=== PATIENT | female | born 1930 | race Caucasian/White ===

== ENCOUNTER 2016-06-23 04:08 | Inpatient (IN) | payer MEDICARE, OTHER ==
[~2016-06-23] VITALS: Ht 152.4 cm; Wt 65.5 kg
[2016-06-23 06:25] LABS: HEMOGLOBIN 12.8 gm/dl (12.3-15.3); RED BLOOD COUNT 4.26 M/UL (4.00-5.10); WHITE BLOOD COUNT 7.1 K/UL (4.5-11.0)
[2016-06-23 06:51] LABS: BUN/CREATININE RATIO 64 (0-10)
[2016-06-23] MEDS ORDERED: ASPIR 8181 MG PO (13:05)
[2016-06-23] MEDS ORDERED: ZOLOFT50 MG PO (13:06)
[2016-06-23] MEDS ORDERED: NITROGLYCERIN0.4 MG SL (13:06)
[2016-06-23] MEDS ORDERED: TOPROL XL 50 MG50 MG PO (13:07)
[2016-06-23] MEDS ORDERED: ALDACTONE25 MG PO (13:08)
[2016-06-23] MEDS ORDERED: K-TAB ER20 MEQ PO (13:08)
[2016-06-23] MEDS ORDERED: LASIX20 MG PO (13:09)
[2016-06-23] MEDS ORDERED: CELEXA20 MG PO (13:09)
[2016-06-23] MEDS ORDERED: PROTONIX40 MG PO (13:10)
[2016-06-23] MEDS ORDERED: LISINOPRIL2.5 MG PO (13:10)
[2016-06-23] MEDS ORDERED: PRILOSEC OTC20 MG PO (13:10)
[2016-06-23] MEDS ORDERED: [UNRECOGNIZED DRUG - REMARK] INH (13:13)
[2016-06-24 03:56] LABS: HEMOGLOBIN 12.1 gm/dl (12.3-15.3); RED BLOOD COUNT 4.07 M/UL (4.00-5.10); WHITE BLOOD COUNT 3.6 K/UL (4.5-11.0)
[2016-06-24 04:09] LABS: BUN/CREATININE RATIO 73 (0-10)
[2016-06-25 03:55] LABS: HEMOGLOBIN 11.7 gm/dl (12.3-15.3)
[2016-06-25 04:01] LABS: WHITE BLOOD COUNT 6.7 K/UL (4.5-11.0)
[2016-06-25 04:09] LABS: BUN/CREATININE RATIO 72 (0-10)
[2016-06-26 04:12] LABS: HEMOGLOBIN 12.4 gm/dl (12.3-15.3); RED BLOOD COUNT 4.14 M/UL (4.00-5.10); WHITE BLOOD COUNT 5.9 K/UL (4.5-11.0)
[2016-06-26 04:27] LABS: BUN/CREATININE RATIO 60 (0-10)
[2016-06-27 05:49] LABS: BUN/CREATININE RATIO 66 (0-10)
[2016-06-28 04:54] LABS: BUN/CREATININE RATIO 66 (0-10)
[2016-06-28] MEDS ORDERED: PLAVIX 75 MG TA75 MG PO (12:25)
[2016-06-28] MEDS ORDERED: FERROUS SULFAT325 MG PO (12:27)
[2016-06-28] MEDS ORDERED: ISOSORBIDE MONO30 MG PO (12:31)
[2016-06-28] MEDS ORDERED: DULERA 100 MCG8.8 GM INH (12:33)
[2016-06-28] MEDS ORDERED: SPIRIVA18 MCG INH (12:34)
[2016-06-28] MEDS ORDERED: TYLENOL 325MG325 MG PO (12:35)
[2016-06-28] MEDS ORDERED: IPRAT-ALBUT 0.5-3 ML INH (12:38)
[2016-06-28] MEDS ORDERED: THERAGRAN M TAB1 EA PO (12:39)
== END 2016-06-28 17:00 | disposition home or self-care (01) | DRG 280 ==
LOC: ER1 04:08 → PROG CARE 10:40 → ZEROF 10:40 → PROG CARE 12:20 → MED SURG 4 06-25 12:19
PROVIDERS: Emergency Medicine; Internal Medicine Infectious Disease; ADMIT Internal Medicine
DX: I21.4 Non-ST elevation (NSTEMI) myocardial infarction (principal); I50.23 Acute on chronic systolic (congestive) heart failure; J44.0 Chronic obstructive pulmonary disease with (acute) lower respiratory infection; J44.1 Chronic obstructive pulmonary disease with (acute) exacerbation; J20.9 Acute bronchitis, unspecified; I11.0 Hypertensive heart disease with heart failure; I25.5 Ischemic cardiomyopathy; D69.6 Thrombocytopenia, unspecified; E53.8 Deficiency of other specified B group vitamins; E61.1 Iron deficiency; I49.5 Sick sinus syndrome; Z95.0 Presence of cardiac pacemaker; I48.0 Paroxysmal atrial fibrillation; I25.10 Atherosclerotic heart disease of native coronary artery without angina pectoris; Z66 Do not resuscitate; Z95.1 Presence of aortocoronary bypass graft; Z95.5 Presence of coronary angioplasty implant and graft; I44.7 Left bundle-branch block, unspecified; I27.2 Other secondary pulmonary hypertension; E78.5 Hyperlipidemia, unspecified; Z98.890 Other specified postprocedural states; Z79.82 Long term (current) use of aspirin; Z79.899 Other long term (current) drug therapy; I36.1 Nonrheumatic tricuspid (valve) insufficiency; K80.20 Calculus of gallbladder without cholecystitis without obstruction; R06.02 Shortness of breath; M79.89 Other specified soft tissue disorders; M79.662 Pain in left lower leg
CPT/HCPCS: ECHO; 36415; 36600; 51702; 71010; 71020; 80048; 80053; 81001; 82550; 82553; 82607; 82728; 82746; 82803; 83540; 83550; 83605; 83735; 83880; 84484; 85025; 85027; 87040; 93005; 93306; 93971; 94640; 94660; 94664; 96361; 96374; 96375; 99285; J0696; J1940; J2270; J2405; J2920; J2930; J3420; J7050; Q0162

== ENCOUNTER 2016-09-24 18:53 | Emergency (ER) | payer MEDICARE, OTHER ==
[~2016-09-24 18:53] MED LIST: ALDACTONE25 MG PO; ASPIR 8181 MG PO; CELEXA20 MG PO; DULERA 100 MCG8.8 GM INH; FERROUS SULFAT325 MG PO; IPRAT-ALBUT 0.5-3 ML INH; ISOSORBIDE MONO30 MG PO; K-TAB ER20 MEQ PO; LASIX20 MG PO; LISINOPRIL2.5 MG PO; NITROGLYCERIN0.4 MG SL; PLAVIX 75 MG TA75 MG PO; PRILOSEC OTC20 MG PO; PROTONIX40 MG PO; SPIRIVA18 MCG INH; THERAGRAN M TAB1 EA PO; TOPROL XL 50 MG50 MG PO; TYLENOL 325MG325 MG PO; ZOLOFT50 MG PO; [UNRECOGNIZED DRUG - REMARK] INH
[2016-09-24 20:12] LABS: HEMOGLOBIN 13.4 gm/dl (12.3-15.3); RED BLOOD COUNT 4.38 M/UL (4.00-5.10); WHITE BLOOD COUNT 4.1 K/UL (4.5-11.0)
[2016-09-24 20:32] LABS: BUN/CREATININE RATIO 47 (0-10)
== END 2016-09-24 22:25 | disposition home or self-care (01) ==
LOC: ER1 18:53
PROVIDERS: Family Medicine
DX: R07.89 Other chest pain (principal); I44.7 Left bundle-branch block, unspecified; J44.9 Chronic obstructive pulmonary disease, unspecified; Z95.0 Presence of cardiac pacemaker; Z95.5 Presence of coronary angioplasty implant and graft; Z79.899 Other long term (current) drug therapy; Z88.2 Allergy status to sulfonamides
CPT/HCPCS: 36415; 71010; 80053; 82550; 82553; 83874; 84484; 85025; 93005; 99285

== ENCOUNTER 2021-02-25 20:28 | Emergency (ER) | payer MEDICARE, OTHER ==
[~2021-02-25 20:28] MED LIST changes: +ASPIRIN CHEWABL81 MG PO; +CEFUROXIME500 MG PO; +CITALOPRAM HBR20 MG PO; +DOCUSATE SODIU100 MG PO; +FUROSEMIDE40 MG PO; +KEFLEX CAP 500500 MG PO; +LISINOPRIL5 MG PO; +MACRODANTIN100 MG PO; +METOPROLOL TART25 MG PO; +MIDODRINE HCL5 MG PO; +MULTIVITAMINS1 EAC1 PO; +NITROFURANTOIN100 MG PO; +NITROSTAT0.4 MG SL; +OMNICEF 300 MG300 MG PO; +PLAVIX75 MG PO; +RANITIDINE HCL150 M1 PO; +SPIRIVA HANDIH18 MCG INH; +SPIRONOLACTONE25 MG PO; +VOLTAREN100 GM TOP; +ZOFRAN4 MG PO; +[UNRECOGNIZED DRUG - OTHER] PO
[2021-02-25 21:16] LABS: HEMOGLOBIN 14.3 gm/dl (12.3-15.3); RED BLOOD COUNT 4.55 M/UL (4.00-5.10); WHITE BLOOD COUNT 5.2 K/UL (4.5-11.0)
[2021-02-25 21:39] LABS: BUN/CREATININE RATIO 40 (0-10)
== END 2021-02-25 22:50 | disposition home or self-care (01) ==
LOC: ER1 20:28
PROVIDERS: Family Medicine
DX: R07.89 Other chest pain (principal); I11.0 Hypertensive heart disease with heart failure; I50.9 Heart failure, unspecified; J44.9 Chronic obstructive pulmonary disease, unspecified
CPT/HCPCS: 71045; 80053; 82550; 82553; 83874; 83880; 84484; 85025; 93005; 99285; J7030

== ENCOUNTER 2021-06-27 22:26 | Emergency (ER) | payer MEDICARE, OTHER ==
[2021-06-28 01:38] LABS: HEMOGLOBIN 13.6 gm/dl (12.3-15.3); RED BLOOD COUNT 4.36 M/UL (4.00-5.10); WHITE BLOOD COUNT 4.1 K/UL (4.5-11.0)
[2021-06-28 02:06] LABS: BUN/CREATININE RATIO 55 (0-10)
[2021-06-28] MEDS ORDERED: OMNICEF 300 MG300 MG PO (04:28)
== END 2021-06-28 04:40 | disposition home or self-care (01) ==
LOC: ER1 22:26
PROVIDERS: Emergency Medicine
DX: N39.0 Urinary tract infection, site not specified (principal); R07.9 Chest pain, unspecified; I11.9 Hypertensive heart disease without heart failure; Z20.822 Contact with and (suspected) exposure to COVID-19
CPT/HCPCS: 71045; 80053; 81001; 82550; 82553; 83690; 83735; 83880; 84439; 84443; 84484; 85025; 93005; 96374; 96375; 99285; J0696; J2405; U0002

== ENCOUNTER 2021-08-01 04:19 | Inpatient (IN) | payer MEDICARE, OTHER ==
[~2021-08-01] VITALS: Ht 152.4 cm; Wt 46.0 kg
[~2021-08-01 04:19] MED LIST changes: -METOPROLOL TART25 MG PO
[2021-08-01 04:39] LABS: HEMOGLOBIN 13.2 gm/dl (12.3-15.3); RED BLOOD COUNT 4.19 M/UL (4.00-5.10); WHITE BLOOD COUNT 4.6 K/UL (4.5-11.0)
[2021-08-01] MEDS ORDERED: METOPROLOL TART25 MG PO (04:39)
[2021-08-01] MEDS ORDERED: NITROGLYCERIN0.4 MG SL (04:47)
[2021-08-01 04:59] LABS: BUN/CREATININE RATIO 61 (0-10)
[2021-08-01] MEDS ORDERED: SERTRALINE HCL25 MG PO (11:11)
[2021-08-01] MEDS ORDERED: ANORO ELLIPTA1 EACH INH (11:12)
[2021-08-01] MEDS ORDERED: LISINOPRIL2.5 MG PO (14:02)
[2021-08-02 03:09] LABS: HEMOGLOBIN 13.8 gm/dl (12.3-15.3); RED BLOOD COUNT 4.46 M/UL (4.00-5.10); WHITE BLOOD COUNT 5.4 K/UL (4.5-11.0)
[2021-08-02 04:18] LABS: BUN/CREATININE RATIO 45 (0-10)
[2021-08-03 02:51] LABS: RED BLOOD COUNT 4.16 M/UL (4.00-5.10)
[2021-08-03 03:27] LABS: BUN/CREATININE RATIO 57 (0-10)
[2021-08-03 03:32] LABS: WHITE BLOOD COUNT 3.3 K/UL (4.5-11.0)
[2021-08-04 02:52] LABS: BUN/CREATININE RATIO 54 (0-10)
[2021-08-04] MEDS ORDERED: ATORVASTATIN CA20 MG PO (12:11)
[2021-08-04] MEDS ORDERED: MEDROL4 MG PO (12:11)
[2021-08-04] MEDS ORDERED: ASPIRIN EC81 MG PO (12:11)
[2021-08-04] MEDS ORDERED: LASIX40 MG PO (12:13)
== END 2021-08-04 14:07 | disposition home or self-care (01) | DRG 291 ==
LOC: ER1 04:19 → CDU 05:44 → M/S 09:14
PROVIDERS: Family Medicine; Internal Medicine; Physician Assistant; ADMIT Internal Medicine
PROC: B24BZZZ Ultrasonography of Heart with Aorta (ICD-10-PCS; principal; 2021-08-01)
DX: I11.0 Hypertensive heart disease with heart failure (principal); I50.23 Acute on chronic systolic (congestive) heart failure; J96.21 Acute and chronic respiratory failure with hypoxia; Z20.822 Contact with and (suspected) exposure to COVID-19; I48.20 Chronic atrial fibrillation, unspecified; J44.1 Chronic obstructive pulmonary disease with (acute) exacerbation; I42.9 Cardiomyopathy, unspecified; I25.10 Atherosclerotic heart disease of native coronary artery without angina pectoris; D69.6 Thrombocytopenia, unspecified; I44.7 Left bundle-branch block, unspecified; I27.20 Pulmonary hypertension, unspecified; Z95.5 Presence of coronary angioplasty implant and graft; Z79.01 Long term (current) use of anticoagulants; Z87.81 Personal history of (healed) traumatic fracture; Z95.0 Presence of cardiac pacemaker; Z98.890 Other specified postprocedural states; Z87.442 Personal history of urinary calculi; Z79.82 Long term (current) use of aspirin
CPT/HCPCS: ECHO; 36415; 71045; 80048; 80053; 82550; 82553; 83735; 83880; 84439; 84443; 84484; 85025; 93005; 93306; 94640; 94664; 94760; 96372; 96374; 96375; 96376; 99285; G0378; J1650; J1940; J2920; U0002

== ENCOUNTER 2021-08-10 00:20 | Inpatient (IN) | payer MEDICARE, OTHER ==
[~2021-08-10] VITALS: Ht 154.9 cm; Wt 45.9 kg
[~2021-08-10 00:20] MED LIST changes: +ASPIRIN EC81 MG PO; +ATORVASTATIN CA20 MG PO; +LASIX40 MG PO; +MEDROL DOSEPAK 24 MG PO; +MEDROL4 MG PO; +METOPROLOL TART25 MG PO; +SERTRALINE HCL25 MG PO
[2021-08-10 00:59] LABS: HEMOGLOBIN 14.6 gm/dl (12.3-15.3); RED BLOOD COUNT 4.62 M/UL (4.00-5.10); WHITE BLOOD COUNT 16.5 K/UL (4.5-11.0)
[2021-08-10 01:22] LABS: BUN/CREATININE RATIO 50 (0-10)
[2021-08-10] MEDS ORDERED: ANORO ELLIPTA1 EACH INH (11:12)
[2021-08-10] MEDS ORDERED: ATORVASTATIN CA40 MG PO (19:18)
[2021-08-10] MEDS ORDERED: MULTI-VITAMIN1 EACH PO (19:29)
[2021-08-10] MEDS ORDERED: ALBUTEROL2.5 MG/3 M INH (19:31)
[2021-08-11 03:48] LABS: RED BLOOD COUNT 4.2 M/UL (4.00-5.10); WHITE BLOOD COUNT 12.9 K/UL (4.5-11.0)
[2021-08-11 04:09] LABS: BUN/CREATININE RATIO 53 (0-10)
[2021-08-11 20:09] LABS: BORDETELLA PARAPERTUSSIS Not Detected (Not Detectd); BORDETELLA PERTUSSIS Not Detected (Not Detectd); CHLAMYDIA PNEUMONIAE Not Detected (Not Detectd); CORONAVIRUS HKU1 Not Detected (Not Detectd); CORONAVIRUS NL63 Not Detected (Not Detectd); CORONAVIRUS OC43 Not Detected (Not Detectd); CORONOAVIRUS 229E Not Detected (Not Detectd); HUMAN METAPNEUMOVIRUS Not Detected (Not Detectd); HUMAN RHINOVIRUS/ENTEROVIRUS Not Detected (Not Detectd); INFLUENZA A Not Detected (Not Detectd); INFLUENZA B Not Detected (Not Detectd); MYCOPLASMA PNEUMONIAE Not Detected (Not Detectd); PARAINFLUENZA VIRUS 1 Not Detected (Not Detectd); PARAINFLUENZA VIRUS 2 Not Detected (Not Detectd); PARAINFLUENZA VIRUS 3 Not Detected (Not Detectd); PARAINFLUENZA VIRUS 4 Not Detected (Not Detectd); RESPIRATORY SYNCYTIAL VIRUS Not Detected (Not Detectd)
[2021-08-11 21:06] LABS: SARS-CoV-2 NOT DETECTED (Not Detectd)
[2021-08-12 06:14] LABS: RED BLOOD COUNT 3.84 M/UL (4.00-5.10); WHITE BLOOD COUNT 10.7 K/UL (4.5-11.0)
[2021-08-12 06:34] LABS: BUN/CREATININE RATIO 56 (0-10)
[2021-08-13 02:57] LABS: HEMOGLOBIN 12.7 gm/dl (12.3-15.3); RED BLOOD COUNT 4.11 M/UL (4.00-5.10); WHITE BLOOD COUNT 8.3 K/UL (4.5-11.0)
[2021-08-13 03:47] LABS: BUN/CREATININE RATIO 53 (0-10)
[2021-08-13] MEDS ORDERED: MEDROL4 MG PO (10:08)
[2021-08-13] MEDS ORDERED: CEFUROXIME250 MG PO (10:08)
[2021-08-14 03:01] LABS: HEMOGLOBIN 12.4 gm/dl (12.3-15.3); RED BLOOD COUNT 3.92 M/UL (4.00-5.10); WHITE BLOOD COUNT 10.2 K/UL (4.5-11.0)
[2021-08-14 03:21] LABS: BUN/CREATININE RATIO 46 (0-10)
[2021-08-14] MEDS ORDERED: IPRAT-ALBUT 0.5-3 ML NEB (17:48)
[2021-08-14] MEDS ORDERED: LASIX40 MG PO (17:48)
[2021-08-14] MEDS ORDERED: BUDESONIDE0.5 MG/2 M NEB (17:49)
[2021-08-14] MEDS ORDERED: MUCINEX600 MG PO (17:57)
--- NOTE | 2021-08-14 18:08 | NUR ---
PROVIDER ASKED PATIENT'S FINAL BP BE DOCUMENTED BEFORE SHE LEFT AT DISCHARGE. HER BP WAS 116/57 WITH A HR OF 85.
== END 2021-08-14 18:38 | disposition home health service (06) | DRG 189 ==
LOC: ER1 00:20 → MED SURG 4 04:04 → CDU 04:04 → MED SURG 4 04:59
PROVIDERS: Family Medicine; Internal Medicine; Physician Assistant; ADMIT Internal Medicine
DX: J96.21 Acute and chronic respiratory failure with hypoxia (principal); J44.1 Chronic obstructive pulmonary disease with (acute) exacerbation; N30.00 Acute cystitis without hematuria; I50.22 Chronic systolic (congestive) heart failure; I13.0 Hypertensive heart and chronic kidney disease with heart failure and stage 1 through stage 4 chronic kidney disease, or unspecified chronic kidney disease; N18.9 Chronic kidney disease, unspecified; Z20.822 Contact with and (suspected) exposure to COVID-19; I95.9 Hypotension, unspecified; D69.6 Thrombocytopenia, unspecified; I44.7 Left bundle-branch block, unspecified; D72.828 Other elevated white blood cell count; Z96.698 Presence of other orthopedic joint implants; I49.5 Sick sinus syndrome; I27.20 Pulmonary hypertension, unspecified; I48.0 Paroxysmal atrial fibrillation; I25.10 Atherosclerotic heart disease of native coronary artery without angina pectoris; J20.9 Acute bronchitis, unspecified; T38.0X5A Adverse effect of glucocorticoids and synthetic analogues, initial encounter; I25.5 Ischemic cardiomyopathy; Z77.22 Contact with and (suspected) exposure to environmental tobacco smoke (acute) (chronic); Z95.0 Presence of cardiac pacemaker; Z95.5 Presence of coronary angioplasty implant and graft; Z79.01 Long term (current) use of anticoagulants; Z79.82 Long term (current) use of aspirin; Z99.81 Dependence on supplemental oxygen; Z87.442 Personal history of urinary calculi; Z87.81 Personal history of (healed) traumatic fracture; Z82.49 Family history of ischemic heart disease and other diseases of the circulatory system
CPT/HCPCS: 36415; 36600; 71045; 80048; 80053; 81001; 82550; 82553; 82803; 83605; 83880; 84484; 85025; 85610; 87040; 87633; 93005; 94640; 94664; 94760; 96372; 96374; 96375; 96376; 97161; 97166; 99285; G0378; J0696; J1650; J2405; J2920

== ENCOUNTER → 2021-09-04 | Outpatient (CLI) | payer MEDICARE, OTHER ==
[~2021-09-04] MED LIST changes: +ALBUTEROL2.5 MG/3 M INH; +ANORO ELLIPTA1 EACH INH; +ATORVASTATIN CA40 MG PO; +BUDESONIDE0.5 MG/2 M NEB; +CEFUROXIME250 MG PO; +IPRAT-ALBUT 0.5-3 ML NEB; +MUCINEX600 MG PO; +MULTI-VITAMIN1 EACH PO
== END ==
LOC: HEART 5 11:47
DX: J96.91 Respiratory failure, unspecified with hypoxia (principal)
CPT/HCPCS: 94060; 94729

== ENCOUNTER 2021-11-09 18:21 | Observation (INO) | payer MEDICARE, OTHER ==
[~2021-11-09] VITALS: Ht 152.4 cm; Wt 57.2 kg
[2021-11-09 19:10] LABS: HEMOGLOBIN 12.3 gm/dl (12.3-15.3); RED BLOOD COUNT 3.95 M/UL (4.00-5.10); WHITE BLOOD COUNT 2.9 K/UL (4.5-11.0)
[2021-11-09 19:33] LABS: BUN/CREATININE RATIO 48 (0-10)
[2021-11-10 04:46] LABS: HEMOGLOBIN 11.5 gm/dl (12.3-15.3); RED BLOOD COUNT 3.68 M/UL (4.00-5.10); WHITE BLOOD COUNT 2.6 K/UL (4.5-11.0)
[2021-11-10 05:16] LABS: BUN/CREATININE RATIO 57 (0-10)
[2021-11-10] MEDS ORDERED: ASPIRIN EC81 MG PO (09:47)
[2021-11-10] MEDS ORDERED: BUDESONIDE0.5 MG/2 M INH (09:48)
[2021-11-10] MEDS ORDERED: IPRAT-ALBUT 0.5-3 ML INH (09:48)
[2021-11-10] MEDS ORDERED: ADVAIR HFA 115-28 GM INH (09:49)
[2021-11-10] MEDS ORDERED: DRISDOL1250 MCG PO (09:50)
[2021-11-10] MEDS ORDERED: GABAPENTIN100 MG PO (09:50)
[2021-11-10] MEDS ORDERED: SPIRONOLACTONE25 MG PO (09:51)
[2021-11-11] MEDS ORDERED: MIDODRINE HCL2.5 MG PO (11:55)
== END 2021-11-11 13:50 | disposition home or self-care (01) ==
LOC: ER1 18:21 → CDU 21:06 → MED SURG 4 21:06
PROVIDERS: ADMIT Internal Medicine
DX: R07.89 Other chest pain (principal); G89.29 Other chronic pain; I95.9 Hypotension, unspecified; I50.22 Chronic systolic (congestive) heart failure; I25.5 Ischemic cardiomyopathy; I25.10 Atherosclerotic heart disease of native coronary artery without angina pectoris; I49.5 Sick sinus syndrome; I48.0 Paroxysmal atrial fibrillation; I44.7 Left bundle-branch block, unspecified; J44.9 Chronic obstructive pulmonary disease, unspecified; J96.11 Chronic respiratory failure with hypoxia; Z20.822 Contact with and (suspected) exposure to COVID-19; Z66 Do not resuscitate; Z95.0 Presence of cardiac pacemaker; Z95.5 Presence of coronary angioplasty implant and graft; Z99.81 Dependence on supplemental oxygen; Z79.51 Long term (current) use of inhaled steroids; Z79.82 Long term (current) use of aspirin; Z79.02 Long term (current) use of antithrombotics/antiplatelets; Z79.899 Other long term (current) drug therapy
CPT/HCPCS: 36415; 71045; 80053; 82550; 82553; 83735; 84100; 84484; 85025; 93005; 94640; 94664; 94760; 96372; 99285; G0378; J1650; U0002

== ENCOUNTER 2021-11-18 20:09 | Emergency (ER) | payer MEDICARE, OTHER ==
[~2021-11-18 20:09] MED LIST changes: +ADVAIR HFA 115-28 GM INH; +BUDESONIDE0.5 MG/2 M INH; +DRISDOL1250 MCG PO; +GABAPENTIN100 MG PO; +MIDODRINE HCL2.5 MG PO
[2021-11-18 20:57] LABS: HEMOGLOBIN 12.7 gm/dl (12.3-15.3); RED BLOOD COUNT 4.11 M/UL (4.00-5.10); WHITE BLOOD COUNT 3.4 K/UL (4.5-11.0)
[2021-11-18 21:21] LABS: BUN/CREATININE RATIO 70 (0-10)
== END 2021-11-19 12:50 | disposition home or self-care (01) ==
LOC: ER1 20:09
PROVIDERS: Physician Assistant
DX: I11.0 Hypertensive heart disease with heart failure (principal); I50.20 Unspecified systolic (congestive) heart failure; I25.5 Ischemic cardiomyopathy; S00.83XA Contusion of other part of head, initial encounter; E78.5 Hyperlipidemia, unspecified; J44.9 Chronic obstructive pulmonary disease, unspecified; W19.XXXA Unspecified fall, initial encounter; Z20.822 Contact with and (suspected) exposure to COVID-19
CPT/HCPCS: 0240U; 71045; 73590; 80053; 81001; 82550; 82553; 83880; 84484; 85025; 87086; 93005; 96374; 99285; J1940

== ENCOUNTER 2021-12-06 18:53 | Emergency (ER) | payer MEDICARE, OTHER ==
[2021-12-06 19:42] LABS: HEMOGLOBIN 13.7 gm/dl (12.3-15.3); RED BLOOD COUNT 4.42 M/UL (4.00-5.10); WHITE BLOOD COUNT 4.2 K/UL (4.5-11.0)
[2021-12-06 20:11] LABS: BUN/CREATININE RATIO 53 (0-10)
[2021-12-06] MEDS ORDERED: ZOFRAN 4 MG TAB4 MG PO (21:21)
== END 2021-12-06 22:40 | disposition home or self-care (01) ==
LOC: ER1 18:53
PROVIDERS: Preventive Medicine Occupational Medicine
DX: K80.20 Calculus of gallbladder without cholecystitis without obstruction (principal); E86.0 Dehydration; I50.9 Heart failure, unspecified
CPT/HCPCS: 80053; 83690; 85025; 85652; 86140; 93005; 96374; 99284; J2405